=== PATIENT | male | born 1960 | race Caucasian/White ===

== ENCOUNTER 2017-06-24 16:18 | Emergency (ER) | payer OTHER ==
--- NOTE | 2017-06-24 17:09 | CPEKG ---
Heart Rate: 88 RR Interval: 682 P-R Interval: 168 QRSD Interval: 106 QT Interval: 356 QTC Interval: 431 P [place]: 52 QRS [place]: -42 T Wave [place]: 68 EKG Severity - ABNORMAL ECG - EKG Impression: SINUS RHYTHM EKG Impression: LEFT ANTERIOR FASCICULAR BLOCK Electronically Signed By: Frederick Polanco 25-Jun-2017 17:29:01
--- NOTE | 2017-06-24 17:16 | EDPHY ---
H & P Time Seen by Provider: 06/24/17 17:12 HPI/ROS: CHIEF COMPLAINT: Hypertension HISTORY OF PRESENT ILLNESS: Patient is a 57-year-old male who presents emergency department concern with his elevated blood pressure. Patient states that the he saw his primary care physician yesterday. His high blood pressure medications were changed. He originally took lisinopril 40 mg q.a.m. And lisinopril 20 mg in the evening. This medication was changed to lisinopril 40 mg q.a.m.. Atenolol 25 mg orally q.p.m. Was added. Patient took his medications as directed. Last night at midnight patient's pressure was 160/92. At 6:00 a.m his blood pressure is 125/83. The patient checked his blood pressure this afternoon it was 189/105. He felt slightly flushed. He called his primary care physician. The physician's physicians assistant told him to come to the emergency department. Patient feels well at this time. No complaints. REVIEW OF SYSTEMS: My complete review of systems is negative except as mentioned in the HPI. Past Medical/Surgical History: Includes hypertension Surgical history: Includes hernia repair Social history: The patient does not smoke Smoking Status: Never smoked Physical Exam: 37.1, 181/104, 89, 18, 98% on room air GENERAL: Well-appearing, in no acute distress, alert. HEENT: Eyes normal to inspection, normal pharynx, no signs of dehydration. NECK: No thyromegaly, no lymphadenopathy, supple. RESPIRATORY: Clear to auscultation bilaterally, no rales, rhonchi or wheezing. CVS: Regular rate and rhythm, no rubs, murmurs, or gallops. ABDOMEN: Soft, nontender, nondistended, no organomegaly. BACK: Normal to inspection, no CVA tenderness. SKIN: Normal color, no rash, warm, dry. No pallor. EXTREMITIES: No pedal edema, no calf tenderness, no Homans sign or cords, no joint swelling. NEURO/PSYCH: Alert and oriented x3, normal mood and affect, normal motor sensory exam. No obvious cranial nerve deficit. Constitutional: Initial Vital Signs Temperature (C) 37.1 C 06/24/17 16:28 Heart Rate 89 06/24/17 16:28 Respiratory Rate 18 06/24/17 16:28 Blood Pressure 181/104 H 06/24/17 16:28 O2 Sat (%) 98 06/24/17 16:28 O2 Delivery Mode Room Air Allergies/Adverse Reactions: No Known Allergies Allergy (Unverified 06/24/17 16:27) Home Medications: Medication Instructions Recorded Blood Pressure Meds 06/24/17 Januvia 25 MG (*) 06/24/17 Lipitor 06/24/17 Metformin HCl 06/24/17 Medical Decision Making ED Course/Re-evaluation: In the emergency department I discussed possible etiologies with the patient. I answered all his questions. EKG was ordered. EKG shows normal sinus rhythm, normal rate, normal axis, left anterior fascicular block.. There are no ST or T-wave abnormalities. I discussed the results with the patient. The patient was instructed to take his lisinopril 40 mg q.a.m. and 20 mg q.p.m.. This was original dosing of lisinopril. Patient will also continue to take atenolol 25 mg at bedtime. Patient was given warnings prior to leaving. He will return with worsening symptoms. Differential Diagnosis: My differential includes but is not limited to ACS, acute DE, hypertensive urgency, hypertensive emergency, dissection, aneurysm Departure - Departure Disposition: Home, Routine, Self-Care Clinical Impression: Hypertension Qualifiers: Hypertension type: unspecified Qualified Code(s): I10 - Essential (primary) hypertension Condition: Good Instructions: Hypertension and Diabetes (ED) Additional Instructions: Take your medications as follows: Lisinopril 40 mg in the morning Lisinopril 20 mg at bedtime Atenolol 25 mg at bedtime Track your blood pressure at regular times throughout the day. Take your measurements to her primary care physician. Return to the emergency department with worsening symptoms or any other concerns. Referrals: [facility] [Other] - 1-2 days without fail
[2017-06-24 17:19] VITALS: BP 156/86
== END 2017-06-24 17:24 | disposition home or self-care (01) ==
DX: I10 Essential (primary) hypertension (principal)